=== PATIENT | female | born 1950 | race Caucasian/White ===

== ENCOUNTER 2019-08-14 08:57 | Emergency (ER) | payer OTHER ==
[~2019-08-14] VITALS: Ht 170.2 cm; Wt 52.6 kg
[2019-08-14 09:05] VITALS: Ht 170.2 cm; Wt 52.6 kg
[2019-08-14 09:27] LABS: PLATELET COUNT 255 x10^3mcL (130-400)
[2019-08-14 09:32] LABS: CALCIUM 8.8 mg/dL (8.5-10.1); CARBON DIOXIDE 29.1 mmol/L (21-32); POTASSIUM SERUM 5.1 mmol/L (3.5-5.1)
[2019-08-14 09:37] LABS: ALBUMIN 3.8 g/dL (3.4-5.0); BILIRUBIN TOTAL 0.4 mg/dL (0.20-1.00); TOTAL PROTEIN, SERUM 7.3 g/dL (6.4-8.2)
[2019-08-14 11:23] LABS: MAGNESIUM 1.6 mg/dL (1.8-2.4)
[2019-08-14 12:08] LABS: microscopic required? NO
[2019-08-14 12:38] LABS: urine erythrocyte NEGATIVE (NEGATIVE)
[2019-08-14 12:47] LABS: AMPHETAMINE QUAL UR NONE DETECTED (See below)
[2019-08-14] MEDS ORDERED: LEVOTHYROXIN0.075 M2 PO (13:52)
[2019-08-14] MEDS ORDERED: METFORMIN HCL1000 MG PO (13:53)
[2019-08-14] MEDS ORDERED: SIMVASTATIN20 M1 PO (13:53)
[2019-08-14] MEDS ORDERED: ZESTRIL5 MG PO (13:53)
[2019-08-14 21:41] VITALS: BP 111/55
== END 2019-08-14 21:41 | disposition short-term general hospital (02) ==
LOC: ED 08:57 → EDBD 08:57 → ED 21:41
PROVIDERS: Emergency Medicine
DX: R55 Syncope and collapse (principal); R27.0 Ataxia, unspecified; I10 Essential (primary) hypertension; R73.09 Other abnormal glucose; E03.9 Hypothyroidism, unspecified; E78.00 Pure hypercholesterolemia, unspecified; Z90.49 Acquired absence of other specified parts of digestive tract
CPT/HCPCS: 82962; J7030; J8597